=== PATIENT | female | born 1945 | race Caucasian/White ===

== ENCOUNTER 2017-09-14 07:29 | Day surgery (SDC) | payer MEDICARE, BC ==
[2017-09-13 13:03] LABS: BASOPHILS % (AUTO) 0.4 % (0-1); EOSINOPHILS # (AUTO) 0.1 X10'3 (0-0.9); EOSINOPHILS % (AUTO) 1.1 % (0-6); HEMATOCRIT 44.5 % (35.0-45.0); HEMOGLOBIN 15.1 g/dl (12.0-16.0); LYMPHOCYTES # (AUTO) 1.4 X10'3 (1.1-4.8); LYMPHOCYTES % (AUTO) 26.8 % (21-51); MEAN CORPUSCULAR HEMOGLOBIN 31.5 PG (27.0-31.0); MEAN CORPUSCULAR HGB CONC 34.1 % (33.0-36.5); MEAN CORPUSCULAR VOLUME 92.5 FL (78-98); MEAN PLATELET VOLUME 9.9 FL (7.4-10.4); MONOCYTES # (AUTO) 0.5 X10'3 (0-0.9); MONOCYTES % (AUTO) 8.8 % (2-12); NEUTROPHILS # (AUTO) 3.3 X10'3 (1.8-7.7); NEUTROPHILS % (AUTO) 62.9 % (42-75); PLATELET COUNT 147 X10'3 (140-440); RED BLOOD COUNT 4.81 X10'6 (4.20-5.60); WHITE BLOOD COUNT 5.2 X10'3 (4.5-11.0)
[2017-09-13 13:15] LABS: ALBUMIN 3.3 G/DL (3.4-5.0); ANION GAP 8 (8-16); BLOOD UREA NITROGEN 10 MG/DL (7-18); CALCIUM 9.1 MG/DL (8.5-10.1); CHLORIDE 109 MMOL/L (99-107); CREATININE 0.91 MG/DL (0.40-0.90); GLUCOSE 104 MG/DL (70-104); POTASSIUM 3.4 MMOL/L (3.5-5.1); SODIUM 144 MMOL/L (135-145); eGFR 61 ML/MIN
[2017-09-13 13:17] LABS: PARTIAL THROMBOPLASTIN TIME 28 SECONDS (22-32); PROTHROMBIN TIME 10.7 SECONDS (9.0-12.0)
[~2017-09-14] VITALS: Ht 167.6 cm; Wt 96.6 kg
[2017-09-14] VITALS (16 sets, daily range): BP systolic 119–155; BP diastolic 61–87
[2017-09-14] MEDS ORDERED: fentaNYL/PF 50MCG/1 ML 2ML syringe ONE (07:41)
[2017-09-14] MEDS ORDERED: heparin 1,000unit/ml 10ml vial 10 ML ONE (07:41)
[2017-09-14] MEDS ORDERED: nitroGLYCERIN-Tridil 50MG/D5W 250 ML IV ONE (07:41)
[2017-09-14] MEDS ORDERED: midazolam 2 mg/2 ml injection ONE (07:41)
[2017-09-14] MEDS ORDERED: iohexol 350MG/ML 100ml bottle IV ONE (07:42)
[2017-09-14] MEDS ORDERED: iohexol 350 MG/ML 50ML vial IV ONE (07:42)
[2017-09-14] MEDS ORDERED: LIDOcaine 1% w/EPI 1:100,000 30ml vial (MDV) ONE (07:42)
[2017-09-14] MEDS ORDERED: diphenhydrAMINE 25mg capsule PO PRN (08:05)
[2017-09-14] MEDS ORDERED: normal saline 1000ml 1,000 ML IV SCH (08:05)
[2017-09-14] MEDS ORDERED: LORazepam 0.5 MG tablet PO PRN (08:05)
[2017-09-14] MEDS ORDERED: CHOL-4 PO (08:25)
[2017-09-14] MEDS ORDERED: acetaminophen w/codeine (30MG) #3 tablet PO ONE (14:15)
== END 2017-09-14 16:50 | disposition home or self-care (01) ==
LOC: SSTAY O 07:29
PROVIDERS: ATTEND Internal Medicine Cardiovascular Disease
DX: I25.10 Atherosclerotic heart disease of native coronary artery without angina pectoris (principal); I10 Essential (primary) hypertension; E78.5 Hyperlipidemia, unspecified; J45.998 Other asthma; Z90.89 Acquired absence of other organs; Z90.49 Acquired absence of other specified parts of digestive tract; Z87.891 Personal history of nicotine dependence; Z72.89 Other problems related to lifestyle; Z91.048 Other nonmedicinal substance allergy status; Z98.890 Other specified postprocedural states; Z79.899 Other long term (current) drug therapy
CPT/HCPCS: 36415; 75625; 80048; 85025; 85610; 85730; 93005; 93458; 99152; 99153; A6257; C1760; J1644; J2250; J3010; J3490; J7030; Q0163; Q9967; A4620

== ENCOUNTER 2022-09-15 12:57 | Outpatient (CLI) | payer MEDICARE, BC ==
[~2022-09-15 12:57] MED LIST: CHOL-4 PO
== END 2022-09-15 23:59 | disposition home or self-care (01) ==
LOC: CARD DIAG 12:57
PROVIDERS: ATTEND Internal Medicine Cardiovascular Disease
DX: I08.8 Other rheumatic multiple valve diseases (principal)
CPT/HCPCS: 93306